=== PATIENT | male | born 1970 | race African-American/Black ===

== ENCOUNTER 2018-01-03 11:25 | Emergency (ER) | payer OTHER ==
[~2018-01-03] VITALS: Ht 175.3 cm; Wt 101.5 kg
[2018-01-03 11:34] VITALS: BP 131/89; PULSE 96; RESP 18; TEMP 98.4; O2SAT 96
--- NOTE | 2018-01-03 11:52 | PD ---
HPI Chief Complaint: General Weakness Time Seen by Provider: 11:40 Travel History International Travel<30 days: No Contact w/Intl Traveler<30days: No Traveled to known affect area: No History of Present Illness HPI This 47-year-old male says that this morning he was at work any noted that he was getting short of breath easily and had trouble catching his breath once he was short of breath. He has not had trouble like this before. He does not smoke cigarettes. He has no history of lung or heart disease. He had worked last Tuesday without any problems over the weekend he was not very active but he did not notice any symptoms. He has not had fever or chills. He has had a mild headache for a couple of weeks. He is on no medications and he has no allergies PFSH Past Medical History Medical History: Denies Significant Hx Tetanus Vaccination: Never Vaccinated Influenza Vaccination: No Past Surgical History Abdominal Surgery: Yes ( A SMALL CHILD; DOESN'T KNOW WHAT) Social History Alcohol Use: No Tobacco Use: No Substance Use: No Allergies-Medications (Allergen,Severity, Reaction): Coded Allergies: No Known Allergies (Unverified , 01/03/18) Reported Meds & Prescriptions Reported Meds & Active Scripts Active No Active Prescriptions or Reported Medications Review of Systems General / Constitutional: No: Fever, Chills Eyes: No: Diploplia, Blurred Vision HENT: Positive: Headaches Cardiovascular: No: Chest Pain or Discomfort, Palpitations Respiratory: Positive: Shortness of Breath, No: Cough Gastrointestinal: No: Vomiting, Diarrhea Genitourinary: No: Urgency, Frequency Musculoskeletal: Positive: Weakness, No: Myalgias, Arthralgias Skin: No Rash, No Itching Neurologic: Positive: Weakness Endocrine: No: Heat Intolerance, Cold Intolerance Hematologic/Lymphatic: No: Easy Bruising Physical Exam Narrative GENERAL: Well-developed male SKIN: Focused skin assessment warm/dry. HEAD: Atraumatic. Normocephalic. EYES: Pupils equal and round. No scleral icterus. No injection or drainage. ENT: No nasal bleeding or discharge. Mucous membranes pink and moist. NECK: Trachea midline. No JVD. CARDIOVASCULAR: Regular rate and rhythm. No murmur appreciated. RESPIRATORY: No accessory muscle use. Clear to auscultation. Breath sounds equal bilaterally. GASTROINTESTINAL: Abdomen soft, non-tender, nondistended. Hepatic and splenic margins not palpable. MUSCULOSKELETAL: No obvious deformities. No clubbing. No cyanosis. No edema. NEUROLOGICAL: Awake and alert. No obvious cranial nerve deficits. Motor grossly within normal limits. Normal speech. PSYCHIATRIC: Appropriate mood and affect; insight and judgment normal. Data Data Last Documented VS Vital Signs Date Time Temp Pulse Resp B/P (MAP) Pulse Ox O2 Delivery O2 Flow Rate FiO2 01/03/18 14:17 82 16 142/86 (104) 99 Room Air 01/03/18 11:34 98.4 Orders Orders Electrocardiogram (01/03/18 11:49) Complete Blood Count With Diff (01/03/18 11:49) Comprehensive Metabolic Panel (01/03/18 11:49) Creatine Kinase (Cpk) (01/03/18 11:49) Troponin I (01/03/18 11:49) B-Type Natriuretic Peptide (01/03/18 11:49) Urinalysis - C+S If Indicated (01/03/18 11:49) W[place]gren Sedimentation Rate (01/03/18 11:49) D-Dimer (01/03/18 11:49) Magnesium (Mg) (01/03/18 11:49) Chest, Pa & Lat (01/03/18 11:49) Thyroid Stimulating Hormone (01/03/18 11:53) Sodium Chlor 0.9% 1000 Ml Inj (Ns 1000 M (01/03/18 13:15) Ct Pulmonary Angiogram (01/03/18 13:14) Iohexol 350 Inj (Omnipaque 350 Inj) (01/03/18 14:28) Labs Laboratory Tests Test 01/03/18 11:20 01/03/18 12:20 01/03/18 12:44 Erythrocyte Sedimentation Rate 1 mm/hr White Blood Count 6.2 TH/MM3 Red Blood Count 6.12 MIL/MM3 Hemoglobin 17.5 GM/DL Hematocrit 52.3 % Mean Corpuscular Volume 85.5 FL Mean Corpuscular Hemoglobin 28.6 PG Mean Corpuscular Hemoglobin Concent 33.5 % Red Cell Distribution Width 12.8 % Platelet Count 205 TH/MM3 Mean Platelet Volume 9.2 FL Neutrophils (%) (Auto) 66.8 % Lymphocytes (%) (Auto) 25.4 % Monocytes (%) (Auto) 6.1 % Eosinophils (%) (Auto) 0.5 % Basophils (%) (Auto) 1.2 % Neutrophils # (Auto) 4.1 TH/MM3 Lymphocytes # (Auto) 1.6 TH/MM3 Monocytes # (Auto) 0.4 TH/MM3 Eosinophils # (Auto) 0.0 TH/MM3 Basophils # (Auto) 0.1 TH/MM3 CBC Comment DIFF FINAL Differential Comment D-Dimer Quantitative (PE/DVT) LESS THAN 0.19 MG/L FEU Blood Urea Nitrogen 18 MG/DL Creatinine 1.60 MG/DL Random Glucose 105 MG/DL Total Protein 8.5 GM/DL Albumin 4.4 GM/DL Calcium Level 9.5 MG/DL Magnesium Level 2.0 MG/DL Alkaline Phosphatase 76 U/L Aspartate Amino Transf (AST/SGOT) 26 U/L Alanine Aminotransferase (ALT/SGPT) 72 U/L Total Bilirubin 1.2 MG/DL Sodium Level 136 MEQ/L Potassium Level 4.6 MEQ/L Chloride Level 103 MEQ/L Carbon Dioxide Level 25.6 MEQ/L Anion Gap 7 MEQ/L Estimat Glomerular Filtration Rate 46 ML/MIN Total Creatine Kinase 139 U/L Troponin I LESS THAN 0.02 NG/ML B-Type Natriuretic Peptide LESS THAN 2 PG/ML Thyroid Stimulating Hormone 3rd Gen 1.300 uIU/ML Urine Collection Type CLEAN CATCH Urine Color YELLOW Urine Turbidity CLEAR Urine pH 5.5 Urine Specific [place] 1.020 Urine Protein NEG mg/dL Urine Glucose (UA) NEG mg/dL Urine Ketones NEG mg/dL Urine Occult Blood TRACE Urine Nitrite NEG Urine Bilirubin NEG Urine Urobilinogen 0.2 MG/DL Urine Leukocyte Esterase NEG Urine Squamous Epithelial Cells 0-5 /hpf Urine Amorphous Sediment MOD Urine Hyaline Casts 3-5 /lpf Microscopic Urinalysis Comment CULT NOT INDICATED Urine Collection Time 1244 MDM Medical Decision Making Medical Screen Exam Complete: Yes Emergency Medical Condition: Yes Medical Record Reviewed: Yes Differential Diagnosis Differential includes anemia, CHF, PE Narrative Course His hemoglobin is 17.2. I did speak with Dr. Amor because of is concerned that this polycythemia might explain some of his symptoms but Dr. Samuel is doubtful that this is high enough. He does recommend that we obtain a CTA even though we have done a d-dimer which is less than 0.19. CTA has been done and is negative. Patient is stable for outpatient treatment. I have explained to him the elevation in his hemoglobin. He does not have elevation of white cells or platelets. Diagnosis Primary Impression: Dyspnea on exertion Scripts No Active Prescriptions or Reported Meds Disposition: 01 DISCHARGE HOME Condition: Stable Mayur Hatch MD January 03, 2018 11:52
[2018-01-03 12:27] LABS: AUTOMATED NEUTROPHIL # 4.1 TH/MM3 (1.8-7.7); BASOPHIL # 0.1 TH/MM3 (0-0.2); BASOPHIL % 1.2 % (0.0-2.0); EOSINOPHIL % 0.5 % (0.0-4.0); HEMATOCRIT 52.3 % (39.0-51.0); HEMOGLOBIN 17.5 GM/DL (13.0-17.0); LYMPH % 25.4 % (9.0-44.0); LYMPHOCYTE # 1.6 TH/MM3 (1.0-4.8); MEAN CELL VOLUME 85.5 FL (80.0-100.0); MEAN CORPUSCULAR HEMOGLOBIN 28.6 PG (27.0-34.0); MEAN CORPUSCULAR HGB CONC 33.5 % (32.0-36.0); MEAN PLATELET VOLUME 9.2 FL (7.0-11.0); MONO % 6.1 % (0.0-8.0); MONOCYTE # 0.4 TH/MM3 (0-0.9); NEUT % 66.8 % (16.0-70.0); PLATELET COUNT 205 TH/MM3 (150-450); RED BLOOD COUNT 6.12 MIL/MM3 (4.50-5.90); RED CELL DISTRIBUTION WIDTH 12.8 % (11.6-17.2); WHITE BLOOD COUNT 6.2 TH/MM3 (4.0-11.0)
[2018-01-03 12:36] LABS: CHLORIDE 103 MEQ/L (98-107); SODIUM (NA) 136 MEQ/L (136-145)
--- NOTE | 2018-01-03 12:36 | RADRPT ---
EXAM DATE: 01/03/2018 12:29 PM EDT AGE/SEX: 47 years / Male INDICATIONS: Short of breath, chest pressure. CLINICAL DATA: This is the patient's initial encounter. Patient reports that signs and symptoms have been present for 1 day and indicates a pain score of 0/10. MEDICAL/SURGICAL HISTORY: None. None. COMPARISON: No prior exams available for comparison. FINDINGS: PA and lateral views of the chest demonstrate the lungs to be symmetrically aerated without evidence of mass, infiltrate or effusion. The cardiomediastinal contours are unremarkable. Osseous structures are intact. CONCLUSION: No active disease. Electronically signed by: Santana Perez MD 01/03/2018 12:34 PM EDT
[2018-01-03 12:39] LABS: CALCIUM 9.5 MG/DL (8.5-10.1)
[2018-01-03 12:40] LABS: ALBUMIN 4.4 GM/DL (3.4-5.0); BICARBONATE 25.6 MEQ/L (21.0-32.0); BLOOD UREA NITROGEN 18 MG/DL (7-18); GLUCOSE,RANDOM 105 MG/DL (74-106)
[2018-01-03 12:43] LABS: ALT (GPT) 72 U/L (12-78); AST (GOT) 26 U/L (15-37); GLOMERULAR FILTRATION RATE 46 ML/MIN (>89)
[2018-01-03 12:44] LABS: TOTAL BILIRUBIN ADULT 1.2 MG/DL (0.2-1.0); TOTAL PROTEIN 8.5 GM/DL (6.4-8.2)
[2018-01-03 12:45] LABS: ALKALINE PHOSPHATASE 76 U/L (45-117)
[2018-01-03 12:48] LABS: TROPONIN I LESS THAN 0.02 NG/ML (0.02-0.05)
[2018-01-03 12:54] LABS: BILIRUBIN, URINE NEG (NEG); BLOOD, URINE TRACE (NEG); GLUCOSE,URINE NEG (NEG); KETONE, URINE NEG (NEG); NITRITE,URINE NEG (NEG); PH, URINE 5.5 (5.0-8.5); URINE COLOR YELLOW (YELLW/STRAW); URINE LEUKOCYTE ESTERASE NEG (NEG)
[2018-01-03 13:03] LABS: AMORPHOUS SEDIMENT, URINE MOD; SQUAMOUS EPITHELIAL CELL URINE 0-5 /hpf (0-5)
[2018-01-03] MEDS ORDERED: SODIUM CHLOR 0.9% 1000 ML INJ 1,000 ML IV ONE (13:15)
[2018-01-03 13:22] VITALS: BP 133/86; PULSE 86; RESP 20; O2SAT 98
[2018-01-03 14:17] VITALS: BP 142/86; PULSE 82; RESP 16; O2SAT 99
[2018-01-03] MEDS ORDERED: IOHEXOL 350 MG/ML 10 ML VIAL (for RAD DIAG) IVCONTRAST ONE (14:28)
--- NOTE | 2018-01-03 15:06 | RADRPT ---
EXAM DATE: 01/03/2018 2:36 PM EDT AGE/SEX: 47 years / Male INDICATIONS: Short of breath. CLINICAL DATA: This is the patient's initial encounter. Patient reports that signs and symptoms have been present for 1 day and indicates a pain score of 0/10. MEDICAL/SURGICAL HISTORY: None. None. RADIATION DOSE: 19.43 CTDI (mGy) COMPARISON: No prior [facility] exams available for comparison. TECHNIQUE: Volumetric scanning was performed using a multi-row detector CT scanner during bolus infu geoff of 65 ml Omnipaque 350 (iohexol) nonionic water-soluble contrast as a single exam dose. The jacek a was post processed with a variety of visualization algorithms including full volume maximum intensi ty projection and sliding thin slab reformation. Using automated exposure control and adjustment of the mA and/or kV according to patient size, radiation dose was kept as low as reasonably achievable t o obtain optimal diagnostic quality images. FINDINGS: The examination is of adequate diagnostic quality. No large or central pulmonary embolus is identifie d. The heart is normal in size. There is no pericardial effusion. No hilar or mediastinal adenopathy is seen. The visualized pulmonary parenchyma is clear. There is no pleural effusion. No suspicious mass lesion s are seen. The visualized bony structures are grossly intact. CONCLUSION: 1. No pulmonary embolus identified. Electronically signed by: Gordy Cervantes MD 01/03/2018 3:05 PM EDT
[2018-01-03 16:12] VITALS: BP 142/86; PULSE 86; RESP 20; O2SAT 98
--- NOTE | 2018-01-04 14:27 | EKG ---
Date Performed: 01/03/2018 Time Performed: 12:09:16 PTAGE: 47 years EKG: Sinus rhythm BORDERLINE RIGHT AXIS DEVIATION POSSIBLE RIGHT VENTRICULAR CONDUCTION DELAY POSSIBLE INFERIOR MYOCAR DIAL INFARCTION ABNORMAL ECG NO PREVIOUS TRACING DOCTOR: Ramy Duong Interpretating Date/Time 01/04/2018 14:25:19
== END 2018-01-03 16:19 | disposition home or self-care (01) ==
LOC: PHED 11:25
DX: R06.09 Other forms of dyspnea (principal); R51 Headache; R53.1 Weakness; R94.31 Abnormal electrocardiogram [ECG] [EKG]
CPT/HCPCS: 71046; 71275; 80053; 81001; 82550; 83735; 83880; 84443; 84484; 85025; 85379; 85652; 93005; 96360; 99285; J7030; Q9967